=== PATIENT | female | born 1970 | race Hispanic/Latino ===

== ENCOUNTER → 2017-07-02 | Day surgery (SDC) | payer OTHER ==
[~2017-07-02] VITALS: Ht 157.5 cm; Wt 92.5 kg
[~2017-07-02] MED LIST: CALCIUM 500 +1 EAC5 PO; HAIR, SKIN & N1 EACH PO; MULTIVITAMINS1 EAC9 PO
--- NOTE | 2017-07-02 16:15 | Operative Report ---
Operative/Inv Procedure Report Surgery Date: 07/02/17 Name of Procedure: urethral sling, cystoscopy Pre-Operative Diagnosis: stressi incontinence Post-Operative Diagnosis: same Estimated Blood Loss: less than 50ml Surgeon/Borough Coordinator: Lashell Gunderson MD Anesthesia: laryngeal mask airway Implants: vaginal mesh Complications: none Condition: stable Operative Indication: stress incontinence Operative/Procedure Note Note: Operative dictation on patient Lida Becerril. She has a history of stress urinary incontinence and she wished to proceed with urethral sling. The risks of vaginal mesh was discussed as well as the risks benefits and alternatives of the surgery in general. All questions were answered. This was done in the office setting as well as the holding area. Patient was taken to the operating room placed on the operating table in the supine position. Timeout was performed. IV antibiotics were infused. Patient was placed in the dorsolithotomy position and she was prepped and draped in the standard sterile fashion after shaving the genitalia region. Sanchez catheter was placed in the bladder was drained. The Sanchez was clamped and placed on the patient's abdomen. 1% lidocaine was infiltrated beneath the urethra. Vaginal flaps are created taking care not to injure the urethra. The Altis Sling kit was then opened and used to place the sling with the trochars provided. The sling was seen to be in a nice tension-free manner in a horizontal lie beneath the urethra. There was no mesh in the vaginal fornices. The tightening Prolene stitch was cut. Incision was closed with running locking 3-0 Vicryl suture. Cystoscopy again was performed and there was no mesh in the bladder wall or the urethra. Sponge and needle count were correct at the end of the case. Patient tolerated procedure well. She was transferred to the recovery room stable condition. Findings: no mesh in bladder, urethra or vaginal fornices
== END ==
LOC: STS 02:34
DX: N39.3 Stress incontinence (female) (male) (principal); K21.9 Gastro-esophageal reflux disease without esophagitis; E66.9 Obesity, unspecified; Z68.37 Body mass index [BMI] 37.0-37.9, adult; Z98.84 Bariatric surgery status; R30.0 Dysuria; R39.14 Feeling of incomplete bladder emptying; N81.10 Cystocele, unspecified
CPT/HCPCS: C1771; J0690; J2250